=== PATIENT | female | born 1975 | race Two or more races ===

== ENCOUNTER 2021-03-21 09:00 | Outpatient (CLI) | payer OTHER | END 2021-03-21 09:15 | disposition home or self-care (01) | LOC: PPH VACUNA 09:00 | PROVIDERS: ATTEND Emergency Medicine Pediatric Emergency Medicine | DX: Z23 Encounter for immunization (principal) ==

== ENCOUNTER 2021-04-24 15:14 | Outpatient (CLI) | payer OTHER | END 2021-04-24 15:21 | disposition home or self-care (01) | LOC: LAB 15:14 | DX: A64 Unspecified sexually transmitted disease (principal) ==

== ENCOUNTER → 2021-11-28 | Outpatient (CLI) | payer OTHER | END | disposition home or self-care (01) | LOC: PPH VACUNA 08:00 | PROVIDERS: ATTEND Emergency Medicine Pediatric Emergency Medicine | DX: Z23 Encounter for immunization (principal) ==